=== PATIENT | female | born 1975 | race African-American/Black ===

== ENCOUNTER → 2017-01-25 | Outpatient (CLI) | payer OTHER ==
--- NOTE | 2017-01-25 16:48 | RAD ---
Bone densitometry scan, 01/25/2017: History: Chronic hormone therapy The lumbar spine and right hip were examined utilizing a DEXA technique. The bone mineral density in the lumbar spine as measured from the L1-L4 levels is 1.08 g/sq cm. This yields a T score of -0.8 which is in the normal range. The total T score of the right hip is 1.1 which is also in the normal range. IMPRESSION: Normal bone mineral density measurements.
== END | disposition home or self-care (01) ==
LOC: DXRAD 15:04
PROVIDERS: ATTEND Nurse Practitioner Family
DX: M85.88 Other specified disorders of bone density and structure, other site (principal)
CPT/HCPCS: 77080